=== PATIENT | male | born 1990 | race Asian ===

== ENCOUNTER 2017-03-28 21:38 | Inpatient (IN) | payer OTHER ==
[~2017-03-28] VITALS: Ht 182.9 cm; Wt 102.9 kg
[2017-03-29 04:05] LABS: BASOPHIL (%) 0.4 % (0-1); EOSINOPHIL (%) 1.8 % (0-5); EOSINOPHIL COUNT 0.2 K/uL (0-0.3); HEMOGLOBIN 15.1 G/DL (12.5-16.6); IMMATURE GRANULOCYTE (%) 0.2 % (0.0-0.7); LYMPHOCYTE (%) 37.9 % (15-42); MCH 28.7 PG (29.0-34.0); MCHC 33.6 G/DL (30.0-36.0); MCV 85.6 FL (86-99); MONOCYTE (%) 6.7 % (3-12); MONOCYTE COUNT 0.7 K/uL (0-0.8); NEUTROPHIL COUNT 5.6 K/uL (1.8-6.4); PLATELET COUNT 196 K/uL (156-360); RBC DIS.WIDTH-CV 12.4 % (11.8-14.6); RBC DIS.WIDTH-SD 38.5 % (39-53); RED BLOOD COUNT 5.26 M/uL (4.00-5.50); WHITE BLOOD COUNT 10.5 K/uL (4.1-10.2)
[2017-03-29 04:18] LABS: CHLORIDE 102 mEq/L (99-109); POTASSIUM 4.3 mEq/L (3.7-5.4); SODIUM 136 mEq/L (136-147)
[2017-03-29 04:20] LABS: GLUCOSE 106 mg/dL (70-99)
[2017-03-29 04:23] LABS: SERUM ETHYL ALCOHOL < 10 mg/dL
[2017-03-29 04:24] LABS: CREATININE 1.4 mg/dL (0.6-1.3); GFR ESTIMATE (CALCULATED) > 59 mL/min/ (58.99-99999)
[2017-03-29 04:25] LABS: UREA NITROGEN (BUN) 19 mg/dL (9-23)
[2017-03-29 04:45] LABS: AMPHETAMINE NEGATIVE (500 ng/mL); BARBITURATES NEGATIVE (200 ng/mL); BENZODIAZEPINES NEGATIVE (150 ng/mL); BUPRENORPHINE NEGATIVE (10 ng/mL); COCAINE NEGATIVE (150 ng/mL); METHADONE NEGATIVE (200 ng/mL); METHAMPHETAMINE NEGATIVE (500 ng/mL); OPIATES (MORPHINE) NEGATIVE (100 ng/mL); OXYCODONE NEGATIVE (100 ng/mL); PHENCYCLIDINE NEGATIVE (25 ng/mL); PROPOXYPHENE NEGATIVE (300 ng/mL); THC CANNABINOIDS NEGATIVE (50 ng/mL); TRICYCLIC ANTIDEPRESSANTS NEGATIVE (300 ng/mL)
[2017-03-29 06:42] LABS: VALPROIC ACID (DEPAKOTE) < 10.0 MCG/ML (50-100)
[2017-03-29 10:04] VITALS: BP 137/92
[2017-03-29] MEDS ORDERED: DEPAKOTE125 MG PO (10:34)
[2017-03-29 16:02] VITALS: BP 144/65
[2017-03-30 07:57] VITALS: BP 105/58
[2017-03-30] MEDS ORDERED: ZOLPIDEM TARTRAT5 MG PO (10:49)
[2017-03-30] MEDS ORDERED: QUETIAPINE FUM200 MG PO (10:49)
== END 2017-03-30 11:24 | disposition home or self-care (01) | DRG 885 ==
LOC: EME 21:38 → EDOF 03-29 05:47 → 1WEST 03-29 09:54 → ENRESERV 03-29 09:55 → 1WEST 03-30 11:24
PROVIDERS: Emergency Medicine
DX: F31.9 Bipolar disorder, unspecified (principal); F41.9 Anxiety disorder, unspecified; G47.00 Insomnia, unspecified
CPT/HCPCS: 80048; 80164; 85025; 90839; 97165 GO; 99281; 99284; G0480